=== PATIENT | male | born 1990 | race Caucasian/White ===

== ENCOUNTER 2017-05-25 21:22 | Emergency (ER) | payer MEDICAID ==
[~2017-05-25] VITALS: Ht 182.9 cm; Wt 69.0 kg
[2017-05-25 21:26] VITALS: BP 137/87
[2017-05-25 22:27] LABS: BASOPHILS # (AUTO) 0.05 x10^3/uL (0-0.1); BASOPHILS % (AUTO) 1 % (0-1); EOSINOPHILS # (AUTO) 0.16 x10^3/uL (0-0.4); EOSINOPHILS % (AUTO) 3 % (1-7); LYMPHOCYTES # (AUTO) 1.35 x10^3/uL (1-3.4); LYMPHOCYTES % (AUTO) 24 % (22-44); MD NO; MEAN CORPUSCULAR HEMOGLOBIN 31.3 pg (27.5-34.5); MEAN CORPUSCULAR HGB CONC 33.5 g/dL (33.2-36.2); MEAN CORPUSCULAR VOLUME 93.2 fL (81-97); MEAN PLATELET VOLUME 7.6 fL (7.4-10.4); MONOCYTES # (AUTO) 0.39 x10^3/uL (0.2-0.8); MONOCYTES % (AUTO) 7 % (2-9); NEUTROPHILS # (AUTO) 3.72 x10^3/uL (1.8-6.8); NEUTROPHILS % (AUTO) 66 % (42-75); PLATELET COUNT 264 x10^3/uL (130-400); RED BLOOD COUNT 4.82 x10^6/uL (4.38-5.82); RED CELL DISTRIBUTION WIDTH 12.6 % (9.4-14.8)
[2017-05-25 22:36] LABS: ALBUMIN 3.6 g/dL (3.4-5.0); ANION GAP 5 mmol/L (5-15); CALCIUM 8.7 mg/dL (8.5-10.1); CHLORIDE 106 mmol/L (98-107); CREATININE 0.84 mg/dL (0.7-1.3)
[2017-05-25 22:39] LABS: ACETAMINOPHEN < 2 mcg/mL (10-30)
[2017-05-25 22:43] LABS: AMPHETAMINE SCREEN, URINE Negative (Negative); BARBITURATE SCREEN, URINE Negative (Negative); BENZODIAZEPINE SCREEN, URINE Negative (Negative); CANNABINOID SCREEN, URINE Negative (Negative); COCAINE SCREEN, URINE Negative (Negative); METHADONE SCREEN, URINE Negative (Negative); OPIATE SCREEN, URINE Negative (Negative)
== END 2017-05-26 01:57 | disposition home or self-care (01) ==
LOC: ED 05-26 01:51
DX: Z00.00 Encounter for general adult medical examination without abnormal findings (principal); F17.200 Nicotine dependence, unspecified, uncomplicated
CPT/HCPCS: 36415; 70450; 80048; 80307; 80329; 82040; 85025; 99285; G0479; G0480

== ENCOUNTER 2017-08-31 10:43 | Observation (INO) | payer MEDICAID ==
[~2017-08-31] VITALS: Ht 180.3 cm; Wt 75.0 kg
[2017-08-31] MEDS ORDERED: ZIPRASIDONE 20 MG INJ IM ONE ×2 (10:51→11:00)
[2017-08-31] MEDS ORDERED: PLEASE ENTER HEIGHT AND WEIGHT MC SCH (11:30)
[2017-08-31] MEDS ORDERED: LORazepam 2 MG/ML, 1ML IM ONE (12:30)
[2017-08-31] MEDS ORDERED: HALOPERIDOL 5 MG/ML IM PRN (12:30)
[2017-08-31] MEDS ORDERED: LORazepam 2 MG/ML, 1ML ONE (12:37)
[2017-08-31] MEDS ORDERED: HALOPERIDOL 5 MG/ML ONE (12:37)
[2017-08-31 14:33] LABS: BASOPHILS # (AUTO) 0.02 x10^3/uL (0-0.1); BASOPHILS % (AUTO) 0 % (0-1); EOSINOPHILS # (AUTO) 0.05 x10^3/uL (0-0.4); EOSINOPHILS % (AUTO) 1 % (1-7); LYMPHOCYTES # (AUTO) 1.36 x10^3/uL (1-3.4); LYMPHOCYTES % (AUTO) 16 % (22-44); MD NO; MEAN CORPUSCULAR HEMOGLOBIN 31.1 pg (27.5-34.5); MEAN CORPUSCULAR HGB CONC 33.6 g/dL (33.2-36.2); MEAN CORPUSCULAR VOLUME 92.5 fL (81-97); MEAN PLATELET VOLUME 7.4 fL (7.4-10.4); MONOCYTES # (AUTO) 0.92 x10^3/uL (0.2-0.8); MONOCYTES % (AUTO) 11 % (2-9); NEUTROPHILS # (AUTO) 6.39 x10^3/uL (1.8-6.8); NEUTROPHILS % (AUTO) 73 % (42-75); PLATELET COUNT 284 x10^3/uL (130-400); RED BLOOD COUNT 4.75 x10^6/uL (4.38-5.82); RED CELL DISTRIBUTION WIDTH 13.3 % (9.4-14.8)
[2017-08-31 14:46] LABS: ALBUMIN 4.2 g/dL (3.4-5.0); ANION GAP 5 mmol/L (5-15); CALCIUM 8.6 mg/dL (8.5-10.1); CHLORIDE 108 mmol/L (98-107)
[2017-08-31 14:51] LABS: CREATININE 0.89 mg/dL (0.7-1.3); SALICYLATE LEVEL 2.3 mg/dL (2.8-20.0)
[2017-08-31 14:57] LABS: ACETAMINOPHEN < 2 mcg/mL (10-30)
[2017-08-31 20:46] LABS: AMPHETAMINE SCREEN, URINE Negative (Negative); BARBITURATE SCREEN, URINE Negative (Negative); BENZODIAZEPINE SCREEN, URINE Negative (Negative); CANNABINOID SCREEN, URINE Negative (Negative); COCAINE SCREEN, URINE Negative (Negative); METHADONE SCREEN, URINE Negative (Negative); OPIATE SCREEN, URINE Negative (Negative)
[2017-09-02] MEDS ORDERED: ACETAMINOPHEN 325 MG TABLET PO PRN (12:30)
[2017-09-02] MEDS ORDERED: ONDANSETRON ODT 4 MG PO PRN (12:30)
[2017-09-02] MEDS ORDERED: OLANZAPINE 5 MG TABLET ONE (12:58)
[2017-09-02] MEDS: OLANZAPINE 5 MG TABLET PO SCH (13:04)
[2017-09-02] MEDS ORDERED: ZIPRASIDONE 20 MG INJ IM PRN (13:30)
[2017-09-02 14:00] LABS: FREE T4 (FREE THYROXINE) 1.35 ng/dL (0.76-1.46); THYROID STIMULATING HORMONE 1.31 mIU/L (0.358-3.740)
[2017-09-02] MEDS: NICOTINE 21 MG/24 HR PATCH.TD24 TD SCH (17:16)
[2017-09-02 20:21] VITALS: BP 148/81
[2017-09-03 07:58] VITALS: BP 117/79
[2017-09-03] MEDS: OLANZAPINE 5 MG TABLET PO SCH (08:29)
[2017-09-03] MEDS: NICOTINE 21 MG/24 HR PATCH.TD24 TD SCH (17:55)
[2017-09-03] MEDS ORDERED: ZIPRASIDONE 20 MG INJ IM PRN (18:00)
[2017-09-03] MEDS ORDERED: LORazepam 1MG TABLET PO PRN (18:00)
[2017-09-03] MEDS ORDERED: LORazepam INTENSOL 2 MG/ML PO PRN (18:00)
[2017-09-03 19:30] VITALS: BP 135/81
[2017-09-04 08:45] VITALS: BP 133/83
[2017-09-04] MEDS: OLANZAPINE 5 MG TABLET PO SCH (09:09)
[2017-09-04] MEDS: NICOTINE 21 MG/24 HR PATCH.TD24 TD SCH (17:16)
[2017-09-04 19:41] VITALS: BP 130/85
[2017-09-04 19:58] LABS: MICROSCOPIC NOT IND
[2017-09-04 20:00] LABS: CULTURE INDICATED? NO
[2017-09-05 08:00] VITALS: BP 120/85
[2017-09-05] MEDS: OLANZAPINE 5 MG TABLET PO SCH (09:04)
[2017-09-05] MEDS: NICOTINE 21 MG/24 HR PATCH.TD24 TD SCH ×2 (17:00→17:11)
[2017-09-06] MEDS: OLANZAPINE 5 MG TABLET PO SCH (08:09)
[2017-09-06] MEDS: NICOTINE 21 MG/24 HR PATCH.TD24 TD SCH (16:24)
[2017-09-06 19:05] VITALS: BP 135/88
== END 2017-09-06 22:00 | disposition home or self-care (01) ==
LOC: ED 12:56 → INTOOBSV 09-02 11:00 → EDIP 09-02 11:00 → 3E 09-02 14:30
PROVIDERS: ADMIT Internal Medicine; ATTEND Internal Medicine
DX: F23 Brief psychotic disorder (principal); R45.850 Homicidal ideations; Z87.891 Personal history of nicotine dependence; Z91.14 Patient's other noncompliance with medication regimen
CPT/HCPCS: 36415; 80048; 80307; 80329; 81003; 82040; 84439; 84443; 85025; 93005; 96372; 99285; G0378; J1630; J2060; J3486; G0480

== ENCOUNTER 2018-10-30 21:42 | Emergency (ER) | payer MEDICAID ==
[~2018-10-30] VITALS: Ht 185.4 cm; Wt 61.4 kg
[2018-10-30 21:44] VITALS: BP 108/66
--- NOTE | 2018-10-30 21:45 | NUR ---
VALERIE MATHIS FROM HOMELESS ALF. PER [facility] THEY REPORTED THAT PT. CAN'T COME BACK UNTIL HE IS CLEARED FROM SCABIES. PT. WAS REFUSING TO SHOW [facility] HIS BACK. PT. CHANGING INTO GOWN NOW. PLACED ON ISO.
== END 2018-10-30 22:27 | disposition home or self-care (01) ==
LOC: ED 22:21
DX: B86 Scabies (principal)
CPT/HCPCS: 99283